=== PATIENT | female | born 1975 | race Caucasian/White ===

== ENCOUNTER 2017-01-05 16:11 | Emergency (ER) | payer BC, MEDICAID, OTHER ==
[~2017-01-05] VITALS: Ht 154.9 cm; Wt 59.0 kg
[2017-01-05 16:19] VITALS: BP 148/102; PULSE 67; RESP 16; TEMP 97.7; O2SAT 98
--- NOTE | 2017-01-05 16:26 | NUR ---
Patient triaged and placed in waiting room. Patient appears in no acute distress at this time. Accompanied by , awaiting available bed, and MD notified of need for MSE.
[2017-01-05] MEDS ORDERED: KETOROLAC TROMETHAMINE 60 MG/2 ML VIAL IM ONE (18:30)
--- NOTE | 2017-01-05 19:30 | NUR ---
Pt was seen by ERICK Boles at 1801 hrs. Xray of thoracic lumbar spine and chest done.
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
[2017-01-05 20:11] VITALS: BP 145/99; PULSE 68; RESP 16; TEMP 98; O2SAT 99
--- NOTE | 2017-01-05 20:11 | NUR ---
Patient given written and verbal discharge instructions and verbalizes understanding. ER [employer] Yessy Boles discussed with patient the results and treatment provided. Patient in stable condition. ID arm band removed. Rx of Motrin 800 mg given. Patient educated on pain management and to follow up with PMD. Pain Scale 4/10. Opportunity for questions provided and answered.
== END 2017-01-05 20:11 | disposition home or self-care (01) ==
LOC: SED 16:11
DX: S39.012A Strain of muscle, fascia and tendon of lower back, initial encounter (principal); S29.012A Strain of muscle and tendon of back wall of thorax, initial encounter; R07.89 Other chest pain; R03.0 Elevated blood-pressure reading, without diagnosis of hypertension; Z90.710 Acquired absence of both cervix and uterus; V89.2XXA Person injured in unspecified motor-vehicle accident, traffic, initial encounter; W22.10XA Striking against or struck by unspecified automobile airbag, initial encounter; Y93.89 Activity, other specified; Y99.8 Other external cause status; Y92.89 Other specified places as the place of occurrence of the external cause
CPT/HCPCS: 71010; 72080; 81025; 93005; 96372; 99284; J1885